=== PATIENT | male | born 1990 | race Caucasian/White ===

== ENCOUNTER 2018-05-08 21:17 | Emergency (ER) | payer OTHER ==
[~2018-05-08] VITALS: Ht 185.4 cm; Wt 80.0 kg
[2018-05-08 21:19] VITALS: Ht 185.4 cm; Wt 80.0 kg
[2018-05-09] MEDS ORDERED: ONDANSETRON 4 MG INJ IV STA (02:50)
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
[2018-05-09] MEDS ORDERED: SOD CHLORIDE 0.9% 1,000 ML IV ONE (03:00)
[2018-05-09] MEDS ORDERED: FAMOTIDINE 20 MG INJ IV ONE (03:00)
[2018-05-09] MEDS ORDERED: LORAZEPAM 2 MG INJ IV ONE (03:00)
[2018-05-09] MEDS ORDERED: LORA-441 PO (04:11)
[2018-05-09 04:25] VITALS: BP 120/70; PULSE 87; RESP 18
== END 2018-05-09 04:28 | disposition home or self-care (01) ==
LOC: FTE 21:17
DX: R11.2 Nausea with vomiting, unspecified (principal); T43.625A Adverse effect of amphetamines, initial encounter; F17.210 Nicotine dependence, cigarettes, uncomplicated
CPT/HCPCS: 80053; 80307; 81001; 83690; 85025; 96361; 96374; 96375; J2060; J2405; J7030; Z7502; Z7610